=== PATIENT | female | born 1955 | race Caucasian/White ===

== ENCOUNTER 2019-05-07 15:51 | Emergency (ER) | payer OTHER, SELFPAY ==
[2019-05-07 16:11] VITALS: BP 116/53; PULSE 61; RESP 16; TEMP 37.1; O2SAT 97
--- NOTE | 2019-05-07 16:23 | DI.RAD_ITS ---
SYMPTOM/DIAGNOSIS: FALL WITH PAIN TO LATERAL FOOT RIGHT FOOT: There is a nondisplaced fracture through the base of the 5th metatarsal. No additional fractures are seen. There are no significant degenerative changes,. IMPRESSION: Nondisplaced fracture of the base of the 5th metatarsal
--- NOTE | 2019-05-07 17:02 | W.ED.GENAD ---
Discharge Plan Disposition Patient Disposition: HOME Condition: Stable Discharge Details Chief Complaint: Orthopedic Clinical Impression: Dancer's fracture Primary Care Provider: Supriya Shell ED Provider: Johnie Anand Home Meds and New Rx's Prescriptions: Continued Ptu 5 mg PO BID RF: 0 Discharge Instructions Instructions: Foot Fracture in Adults (ED) Additional Instructions: Continue to use acetaminophen for pain control, rest ice and elevate the extremity, and follow-up with your local orthopedist preferably early next week. Referrals: No,Local [Primary Care Provider] - (Follow-up with your local orthopedist for reassessment preferably early next week) Discharge Data Discharge Date/Time-TO BE ENTERED AT DEPARTURE: 05/07/19 17:53 Medical Decision Making Patient presenting to the emergency department for chief complaint of right foot injury. Patient reports earlier this morning walking down some stairs that were slick due to some do present and having an inversion injury to her right foot and ankle. She states multiple sprains of the right ankle but reports that this feels different as an pain is more in the foot. Patient states at rest pain is very minimal aching but with weightbearing she has radiating pain from her foot up into her lower leg. Physical exam is unremarkable except for discomfort to palpation of the base of the fifth metatarsal. Given this I do feel that radiological imaging is warranted. Patient denies any need of pain medication as she states she took acetaminophen just prior to arrival My personal review of radiological imaging shows a possible avulsion fracture of the fifth metatarsal at the base. Review of preliminary radiology report also shows a nondisplaced fracture of the base the fifth metatarsal. Given that is nondisplaced and more proximal I feel that this is a dancer's fracture and not a Parnell fracture. Due to this I feel that patient is appropriate for a walking boot and weightbearing as tolerated but she does state that she has crutches at home. Patient states that acetaminophen has been appropriate controlling her pain. Patient was given a radiological disk of her imaging and informed that she should contact orthopedist on Sunday for arrangement of close follow-up and reassessment. HPI General Mode of arrival: ambulatory. Date/Time Provider Initiated Documentation: 05/07/19 16:07. Limitations to Documentation: no limitations. Information obtained by: patient and RN notes reviewed. History of Present Illness 63 year old F presents to the emergency department with the chief complaint of right foot injury, described as mild, with intensity rated at 2. Quality is described as aching, and is localized to the right and lower extremity. Patient started experiencing this hour(s) (9) and it has been constant. Rest improves symptom(s), Movement worsens symptoms (And weightbearing) . Patient notes no other symptoms.. Patient did receive the following treatments prior to arrival, other (Acetaminophen) Related Data Home Medications Medication Instructions Recorded Confirmed Ptu 5 mg PO BID 05/07/19 05/07/19 Allergies Allergy/AdvReac Type Severity Reaction Status Date / Time NSAIDS (Non-Steroidal Allergy Unverified 05/07/19 16:14 Anti-Inflamma Sulfa (Sulfonamide Allergy Unverified 05/07/19 16:14 Antibiotics) drummond butter Allergy Uncoded 05/07/19 16:15 General Stated Complaint: Orthopedic BASSAM: 4 Review of Systems Cardiovascular Denies syncope Musculoskeletal Reports as per HPI, Denies numbness and Denies tingling Integumentary/Breasts Denies rash, Denies sores and Denies wounds Neurologic Denies syncope, Denies numbness and Denies tingling [facility] Social History Smoking/Tobacco Use Status: Never Alcohol Intake: never Substance use type: does not use Exam Const General: cooperative and no acute distress Orientation: alert, awake and oriented x3 Resp Effort & Inspection: normal respiratory effort and able to speak in complete sentences Cardio Rate: regular rate Rhythm: regular rhythm Extrem Right lower extremity: ankle Details: normal to inspection and normal ROM; no tenderness, no swelling, no ecchymosis and no crepitus and foot Details: normal capillary refill, tenderness Location: of the base of the 5th metatarsal, toes with normal ROM, vascular exam Details: dorsalis pedis pulse present, posterior tibial pulse present and normal capillary refill, tendon exam Details: active flexion normal and active extension normal and motor-sensory exam Details: light-touch normal; no laceration and no ecchymosis Course Vital Signs Temperature 37.1 C 05/07/19 16:11 Pulse 61 05/07/19 16:11 Respiratory Rate 16 05/07/19 16:11 Blood Pressure 116/53 L 05/07/19 16:11 Pulse Oximetry 97 05/07/19 16:11 Temperature 37.1 C 05/07/19 16:11 Temperature Source Skin 05/07/19 16:11 Pulse 61 05/07/19 16:11 Respiratory Rate 16 05/07/19 16:11 Respiratory Effort 05/07/19 16:11 Blood Pressure 116/53 L 05/07/19 16:11 Blood Pressure Position Sitting 05/07/19 16:11 Pulse Oximetry 97 05/07/19 16:11 Oxygen Delivery Method Room Air 05/07/19 16:11 Oxygen Flow Rate 0 05/07/19 16:11 Pain Level 8 05/07/19 16:11
--- NOTE | 2019-05-07 17:04 | DI.VRAD_ITS ---
EXAM: XR Right Foot Complete EXAM DATE/TIME: 05/07/2019 4:23 PM CLINICAL HISTORY: 63 years old, female; Injury or trauma; Fall; Initial encounter; Blunt trauma; Right; Injury details: Lateral foot pain, previous R ankle injury TECHNIQUE: Imaging protocol: XR Right foot. Views: 3 or more views. COMPARISON: No relevant prior studies available. FINDINGS: Bones/joints: Only on the lateral view there is a curvilinear lucency that appears to be a tiny cortical defect in the base of the fifth metatarsal consistent with a nondisplaced fracture Soft tissues: Normal. IMPRESSION: Nondisplaced fracture the base of fifth metatarsal Dictated and Authenticated by: Domingo Ledezma MD. Ordering:ELANA Jett MD
--- NOTE | 2019-05-07 17:05 | ED.GENADUL_ITS ---
Discharge Plan Disposition Patient Disposition: HOME Condition: Stable Discharge Details Chief Complaint: Orthopedic Clinical Impression: Dancer's fracture Primary Care Provider: Supriya Shell ED Provider: Johnie Anand Home Meds and New Rx's Prescriptions: Continued Ptu 5 mg PO BID RF: 0 Discharge Instructions Instructions: Foot Fracture in Adults (ED) Additional Instructions: Continue to use acetaminophen for pain control, rest ice and elevate the extremity, and follow-up with your local orthopedist preferably early next week. Referrals: No,Local [Primary Care Provider] - (Follow-up with your local orthopedist for reassessment preferably early next week) Discharge Data Discharge Date/Time-TO BE ENTERED AT DEPARTURE: 05/07/19 17:53 Medical Decision Making Patient presenting to the emergency department for chief complaint of right foot injury. Patient reports earlier this morning walking down some stairs that were slick due to some do present and having an inversion injury to her right foot and ankle. She states multiple sprains of the right ankle but reports that this feels different as an pain is more in the foot. Patient states at rest pain is very minimal aching but with weightbearing she has radiating pain from her foot up into her lower leg. Physical exam is unremarkable except for discomfort to palpation of the base of the fifth metatarsal. Given this I do feel that radiological imaging is warranted. Patient denies any need of pain medication as she states she took acetaminophen just prior to arrival My personal review of radiological imaging shows a possible avulsion fracture of the fifth metatarsal at the base. Review of preliminary radiology report also shows a nondisplaced fracture of the base the fifth metatarsal. Given that is nondisplaced and more proximal I feel that this is a dancer's fracture and not a Parnell fracture. Due to this I feel that patient is appropriate for a walking boot and weightbearing as tolerated but she does state that she has crutches at home. Patient states that acetaminophen has been appropriate controlling her pain. Patient was given a radiological disk of her imaging and informed that she should contact orthopedist on Sunday for arrangement of close follow-up and reassessment. HPI General Mode of arrival: ambulatory . Date/Time Provider Initiated Documentation: 05/07/19 16:07 . Limitations to Documentation: no limitations . Information obtained by: patient and RN notes reviewed . History of Present Illness 63 year old F presents to the emergency department with the chief complaint of right foot injury, described as mild, with intensity rated at 2. Quality is described as aching, and is localized to the right and lower extremity. Patient started experiencing this hour(s) (9) and it has been constant. Rest improves symptom(s), Movement worsens symptoms (And weig htbearing) . Patient notes no other symptoms.. Patient did receive the following treatments prior to arrival, other (Acetaminophen) Related Data Home Medications Medication Instructions Recorded Confirmed Ptu 5 mg PO BID 05/07/19 05/07/19 Allergies Allergy/AdvReac Type Severity Reaction Status Date / Time NSAIDS (Non-Steroidal Allergy Unverified 05/07/19 16:14 Anti-Inflamma Sulfa (Sulfonamide Allergy Unverified 05/07/19 16:14 Antibiotics) drummond butter Allergy Uncoded 05/07/19 16:15 General Stated Complaint: Orthopedic BASSAM: 4 Review of Systems Cardiovascular Denies syncope Musculoskeletal Reports as per HPI, Denies numbness and Denies tingling Integumentary/Breasts Denies rash, Denies sores and Denies wounds Neurologic Denies syncope, Denies numbness and Denies tingling [facility] Social History Smoking/Tobacco Use Status: Never Alcohol Intake: never Substance use type: does not use Exam Const General: cooperative and no acute distress Orientation: alert, awake and oriented x3 Resp Effort & Inspection: normal respiratory effort and able to speak in complete sentences Cardio Rate: regular rate Rhythm: regular rhythm Extrem Right lower extremity: ankle Details: normal to inspection and normal ROM; no tenderness, no swelling, no ecchymosis and no crepitus and foot Details: normal capillary refill, tenderness Location: of the base of the 5th metatarsal, toes with normal ROM, vascular exam Details: dorsalis pedis pulse present, posterior tibial pulse present and normal capillary refill, tendon exam Details: active flexion normal and active extension normal and motor-sensory exam Details: light-touch normal; no laceration and no ecchymosis Course Vital Signs Temperature 37.1 C 05/07/19 16:11 Pulse 61 05/07/19 16:11 Respiratory Rate 16 05/07/19 16:11 Blood Pressure 116/53 L 05/07/19 16:11 Pulse Oximetry 97 05/07/19 16:11 Temperature 37.1 C 05/07/19 16:11 Temperature Source Skin 05/07/19 16:11 Pulse 61 05/07/19 16:11 Respiratory Rate 16 05/07/19 16:11 Respiratory Effort 05/07/19 16:11 Blood Pressure 116/53 L 05/07/19 16:11 Blood Pressure Position Sitting 05/07/19 16:11 Pulse Oximetry 97 05/07/19 16:11 Oxygen Delivery Method Room Air 05/07/19 16:11 Oxygen Flow Rate 0 05/07/19 16:11 Pain Level 8 05/07/19 16:11
[2019-05-07 17:44] VITALS: BP 116/53; PULSE 61; RESP 16; O2SAT 97
== END 2019-05-07 17:53 | disposition home or self-care (01) ==
PROVIDERS: Emergency Provider Nurse Practitioner Family
DX: S92.351A Displaced fracture of fifth metatarsal bone, right foot, initial encounter for closed fracture (principal); W10.8XXA Fall (on) (from) other stairs and steps, initial encounter
CPT/HCPCS: 28470; 73630; L4361